=== PATIENT | male | born 1955 | race Caucasian/White ===

== ENCOUNTER 2020-05-12 09:52 | Emergency (ER) | payer OTHER ==
[2020-05-12] MEDS ORDERED: Sodium Chloride 0.9% 10 ML Syringe FLUSH PRN ×2 (10:02→10:25)
[2020-05-12] MEDS ORDERED: Sodium Chloride 0.9% 1,000 ML IV STA (10:02)
[2020-05-12] MEDS ORDERED: Ondansetron 4 MG/2 ML SDV IVPUSH ONE (10:02)
[2020-05-12] MEDS ORDERED: HYDROmorphone 1 MG/ML Syringe IVPUSH ONE (10:04)
--- NOTE | 2020-05-12 10:23 | EDM.PDOC ---
ED HPI GENERAL MEDICAL PROBLEM - General Chief Complaint: Abdominal Pain Stated Complaint: [facility] Time Seen by Provider: 05/12/20 09:57 Source of Information: Reports: Patient, EMS History Limitations: Reports: No Limitations - History of Present Illness INITIAL COMMENTS - FREE TEXT/NARRATIVE: The patient presents by [facility] for abdominal pain. He says this has been going on for about 3 days. The pain is in the right mid abdomen. He has some nausea with it at times. He also has some upper back pain. He has no fever, chills, cough, congestion, runny nose, chest pain or shortness of breath. He has a history of hypercholesterolemia. He is not on medications. He does smoke. He still has his appendix and gallbladder. He has no dysuria or di arrhea. Onset: Gradual Duration: Day(s): (3) Location: Reports: Abdomen, Back Quality: Reports: Sharp Severity: Severe Improves with: Reports: None Worsens with: Reports: None Associated Symptoms: Reports: Nausea/Vomiting. Denies: Chest Pain, Cough, Fever/Chills, Headaches, Shortness of Breath Upper Abdomen Pain Score (Numeric/FACES): 8 - Related Data Allergies Allergy/AdvReac Type Severity Reaction Status Date / Time No Known Allergies Allergy Verified 05/12/20 10:02 Home Meds: Home Meds Docusate Sodium [Colace] 100 mg PO BID 05/12/20 [History] Past Medical History HEENT History: Reports: None Cardiovascular History: Reports: High Cholesterol Respiratory History: Reports: None Gastrointestinal History: Reports: Chronic Constipation Genitourinary History: Reports: None Musculoskeletal History: Reports: None Neurological History: Reports: None Psychiatric History: Reports: None Endocrine/Metabolic History: Reports: None Hematologic History: Reports: None Immunologic History: Reports: None Oncologic (Cancer) History: Reports: None Dermatologic History: Reports: None - Infectious Disease History Infectious Disease History: Reports: None Social & Family History - Tobacco Use Smoking Status *Q: Current Every Day Smoker Years of Tobacco use: 40 Packs/Tins Daily: 0.5 - Caffeine Use Caffeine Use: Reports: Coffee, Soda - Recreational Drug Use Recreational Drug Use: No ED ROS GENERAL - Review of Systems Review Of Systems: See Below Constitutional: Reports: No Symptoms HEENT: Reports: No Symptoms Respiratory: Reports: No Symptoms Cardiovascular: Reports: No Symptoms Endocrine: Reports: No Symptoms GI/Abdominal: Reports: Abdominal Pain, Nausea : Reports: No Symptoms Musculoskeletal: Reports: Back Pain Skin: Reports: No Symptoms Neurological: Reports: No Symptoms ED EXAM, GI/ABD - Physical Exam Exam: See Below Exam Limited By: No Limitations General Appearance: Alert, No Apparent Distress Ears: Normal External Exam Nose: Normal Inspection Head: Atraumatic, Normocephalic Neck: Normal Inspection Respiratory/Chest: No Respiratory Distress, Lungs Clear, Normal Breath Sounds Cardiovascular: Regular Rate, Rhythm, No Edema, No Murmur GI/Abdominal Exam: Soft, No Organomegaly, No Mass, Tender (Moderate tenderness to the mid right abdomen) EKG INTERPRETATION EKG Date: 05/12/20 Time: 10:12 Rhythm: NSR Rate (Beats/Min): 71 [place]: Normal P-Wave: Present QRS: Normal ST-T: Other (Slight ST elevation in the inferior leads with ST depression in the anterior lateral leads) QT: Normal OR/PQ Interval: 2nd degree type II Course - Vital Signs Last Recorded V/S: Last Vital Signs Temp 96.6 F L 05/12/20 09:58 Pulse 70 05/12/20 09:58 Resp 16 05/12/20 09:58 BP 170/81 H 05/12/20 09:58 Pulse Ox 95 05/12/20 09:58 - Orders/Labs/Meds Orders: Active Orders 24 hr Category Date Time Status EKG Documentation Completion [RC] STAT Care 05/12/20 10:02 Active Peripheral IV Care [RC] . DIRECTED Care 05/12/20 10:03 Active CORONAVIRUS COVID-19 RAPID [MOLEC] Stat Lab 05/12/20 10:24 Ordered PTT,PARTIAL THROMBOPLSTIN TIME [COAG] Stat Lab 05/12/20 10:13 Received UA W/MICROSCOPIC [URIN] Stat Lab 05/12/20 10:02 Ordered Heparin Sodium/D5W [Heparin 25,000 Units in D5W 500 ML] Med 05/12/20 11:15 Active 25,000 units in 500 ml IV TITRATE Sodium Chloride 0.9% [Normal Saline] 100 ml Med 05/12/20 10:30 Active IV ASDIRECTED Sodium Chloride 0.9% [Saline Flush] Med 05/12/20 10:02 Active 10 ml FLUSH ASDIRECTED PRN Sodium Chloride 0.9% [Saline Flush] Med 05/12/20 10:25 Active 10 ml FLUSH ONETIME PRN ED Antiemetic Medication Reflex [OM.PC] Stat Oth 05/12/20 10:03 Ordered Peripheral IV Insertion Adult [OM.PC] Stat Ot 05/12/20 10:02 Ordered Medication Orders Sodium Chloride (Normal Saline) 100 mls @ 60 mls/hr IV ASDIRECTED GAYLE Last Admin: 05/12/20 10:30 Dose: 60 mls/hr Documented by: GENESIS Heparin Sodium/Dextrose (Heparin 25,000 Units In D5w 500 Ml) 25,000 units in 500 mls @ 18.751 mls/hr IV TITRATE GAYLE; Protocol Sodium Chloride (Saline Flush) 10 ml FLUSH ASDIRECTED PRN PRN Reason: Keep Vein Open Last Admin: 05/12/20 10:17 Dose: 10 ml Documented by: TYRONE Sodium Chloride (Saline Flush) 10 ml FLUSH ONETIME PRN PRN Reason: Keep Vein Open Last Admin: 05/12/20 10:30 Dose: 10 ml Documented by: GENESIS Labs: Laboratory Tests 05/12/20 05/12/20 Range/Units 10:13 10:13 WBC 14.08 H (4.23-9.07) K/mm3 RBC 5.20 (4.63-6.08) M/mm3 Hgb 15.6 (13.7-17.5) gm/dl Hct 45.6 (40.1-51.0) % MCV 87.7 (79.0-92.2) fl MCH 30.0 (25.7-32.2) pg MCHC 34.2 (32.2-35.5) g/dl RDW Std Deviation 42.8 (35.1-43.9) fL Plt Count 178 (163-337) K/mm3 MPV 11.4 (9.4-12.3) fl Neut % (Auto) 74.7 H (34.0-67.9) % Lymph % (Auto) 20.2 L (21.8-53.1) % Morris % (Auto) 4.6 L (5.3-12.2) % Eos % (Auto) 0.1 L (0.8-7.0) Baso % (Auto) 0.1 (0.1-1.2) % Neut # (Auto) 10.51 H (1.78-5.38) K/mm3 Lymph # (Auto) 2.85 (1.32-3.57) K/mm3 Morris # (Auto) 0.65 (0.30-0.82) K/mm3 Eos # (Auto) 0.01 L (0.04-0.54) K/mm3 Baso # (Auto) 0.02 (0.01-0.08) K/mm3 Manual Slide Review Normal smear Sodium 143 (136-145) mEq/L Potassium 4.3 (3.5-5.1) mEq/L Chloride 105 (98-107) mEq/L Carbon Dioxide 28 (21-32) mEq/L Anion Gap 14.3 (5-15) BUN 13 (7-18) mg/dL Creatinine 1.2 (0.7-1.3) mg/dL Est Cr Clr Drug Dosing 60.55 mL/min Estimated GFR (MDRD) > 60 (>60) mL/min BUN/Creatinine Ratio 10.8 L (14-18) Glucose 148 H (80-115) mg/dL Calcium 9.3 (8.5-10.1) mg/dL Total Bilirubin 1.5 H (0.2-1.0) mg/dL AST 154 H (15-37) U/L ALT 75 H (16-63) U/L Alkaline Phosphatase 84 (46-116) U/L Troponin I 9.372 H* (0.00-0.056) ng/mL Total Protein 7.4 (6.4-8.2) g/dl Albumin 4.0 (3.4-5.0) g/dl Globulin 3.4 gm/dL Albumin/Globulin Ratio 1.2 (1-2) Lipase 71 L (73-393) U/L Meds: Medications Generic Name Dose Route Start Last Admin Trade Name Freq PRN Reason Stop Dose Admin Sodium Chloride 100 mls @ 60 mls/hr 05/12/20 10:30 05/12/20 10:30 Normal Saline IV 60 mls/hr ASDIRECTED GAYLE Administration Heparin Sodium/Dextrose 25,000 units in 500 mls @ 18.751 mls/hr 05/12/20 11:15 Heparin 25,000 Units In D5w 500 Ml IV TITRATE GAYLE Protocol 13 UNITS/KG/HR Sodium Chloride 10 ml 05/12/20 10:02 05/12/20 10:17 Saline Flush FLUSH 10 ml ASDIRECTED PRN Administration Keep Vein Open Sodium Chloride 10 ml 05/12/20 10:25 05/12/20 10:30 Saline Flush FLUSH 10 ml ONETIME PRN Administration Keep Vein Open Discontinued Medications Generic Name Dose Route Start Last Admin Trade Name Freq PRN Reason Stop Dose Admin Aspirin 324 mg 05/12/20 11:04 Aspirin PO 05/12/20 11:05 ONETIME ONE Heparin Sodium (Porcine) 4,000 units 05/12/20 11:04 Heparin Sodium IVPUSH 05/12/20 11:05 .BOLUS ONE Hydromorphone HCl 1 mg 05/12/20 10:04 05/12/20 10:14 Dilaudid IVPUSH 05/12/20 10:05 1 mg ONETIME ONE Administration Sodium Chloride 1,000 mls @ 1,000 mls/hr 05/12/20 10:02 05/12/20 10:14 Normal Saline IV 05/12/20 11:01 1,000 mls/hr .BOLUS STA Administration Iopamidol 125 ml 05/12/20 10:25 05/12/20 10:29 Isovue-370 (76%) IVPUSH 05/12/20 10:26 125 ml ONETIME ONE Administration Ondansetron HCl 4 mg 05/12/20 10:02 05/12/20 10:14 Zofran IVPUSH 05/12/20 10:03 4 mg ONETIME ONE Administration - Re-Assessments/Exams Free Text/Narrative Re-Assessment/Exam: 05/12/20 11:09 I ordered an IV NS 1L bolus, zofran 4mg IV, dilaudid 1mg IV, EKG, labs and a CT of his chest, abdomen and pelvis with contrast to look at his aorta. His EKG did show some slight ST elevation in the inferior leads and ST depression in V1 to V6. His WBC was 14.08. His glucose was elevated at 148. His total bili is elevated at 1.5. His AST is elevated at 154. His ALT is elevated at 75. His t roponin is very elevated at 9.372. His CT of his chest, abdomen and pelvis shows no aneurysm and nothing acute and nothing to explain the pain. It does appear he is having a nonSTEMI. I did an EKG and that slight elevation in the ST segments in the inferior leads is gone but he still has ST depression in V1 through V6. I asked the patient again if he had any chest pain with this and he denied it. I ordered aspirin and a heparin bolus of 4,000 units and a drip of a 1,000 units. I called [facility] in [place] and talked with Dr Cowart the music cataloguer recreation coordinator and he accepted the patient. He did want a atorvastatin give. We do not have that so I ordered simvastatin. He will be going by ground ambulance. Departure - Departure Time of Disposition: 11:25 Disposition: DC/Tfer to Acute Hospital 02 Condition: Serious Clinical Impression: Non-STEMI (non-ST elevated myocardial infarction) - Discharge Information Forms: ED Department Discharge Sepsis Event Note (ED) - Evaluation Sepsis Screening Result: No Definite Risk - Focused Exam Vital Signs: Vital Signs Temp Pulse Resp BP Pulse Ox 05/12/20 09:58 96.6 F L 70 16 170/81 H 95 - My Orders Last 24 Hours: My Active Orders 05/12/20 10:02 EKG Documentation Completion [RC] STAT UA W/MICROSCOPIC [URIN] Stat Sodium Chloride 0.9% [Saline Flush] 10 ml FLUSH ASDIRECTED PRN Peripheral IV Insertion Adult [OM.PC] Stat 05/12/20 10:03 Peripheral IV Care [RC] . DIRECTED ED Antiemetic Medication Reflex [OM.PC] Stat 05/12/20 10:13 PTT,PARTIAL THROMBOPLSTIN TIME [COAG] Stat 05/12/20 10:24 CORONAVIRUS COVID-19 RAPID [MOLEC] Stat 05/12/20 10:25 Sodium Chloride 0.9% [Saline Flush] 10 ml FLUSH ONETIME PRN 05/12/20 10:30 Sodium Chloride 0.9% [Normal Saline] 100 ml IV ASDIRECTED 05/12/20 11:15 Heparin Sodium/D5W [Heparin 25,000 Units in D5W 500 ML] 25,000 units in 500 ml IV TITRATE - Assessment/Plan Last 24 Hours: My Active Orders 05/12/20 10:02 EKG Documentation Completion [RC] STAT UA W/MICROSCOPIC [URIN] Stat Sodium Chloride 0.9% [Saline Flush] 10 ml FLUSH ASDIRECTED PRN Peripheral IV Insertion Adult [OM.PC] Stat 05/12/20 10:03 Peripheral IV Care [RC] . DIRECTED ED Antiemetic Medication Reflex [OM.PC] Stat 05/12/20 10:13 PTT,PARTIAL THROMBOPLSTIN TIME [COAG] Stat 05/12/20 10:24 CORONAVIRUS COVID-19 RAPID [MOLEC] Stat 05/12/20 10:25 Sodium Chloride 0.9% [Saline Flush] 10 ml FLUSH ONETIME PRN 05/12/20 10:30 Sodium Chloride 0.9% [Normal Saline] 100 ml IV ASDIRECTED 05/12/20 11:15 Heparin Sodium/D5W [Heparin 25,000 Units in D5W 500 ML] 25,000 units in 500 ml IV TITRATE
[2020-05-12] MEDS ORDERED: Iopamidol 755 Mg/ML 100 ML Bottle IVPUSH ONE (10:25)
[2020-05-12] MEDS ORDERED: Sodium Chloride 0.9% 100 ML IV SCH (10:30)
[2020-05-12] MEDS ORDERED: Heparin Sodium 5,000 Units/ML Vial IVPUSH ONE (11:04)
[2020-05-12] MEDS ORDERED: Aspirin 81 MG Tab.Chew PO ONE (11:04)
--- NOTE | 2020-05-12 11:06 | CT ---
CT chest Technique: Multiple axial sections through the chest were obtained. Intravenous contrast was utilized. Reconstructed coronal and sagittal images were obtained. Comparison: Prior chest CT study performed as a high resolution study dated 01/12/16. Findings: Aorta shows no aneurysm. Mild atherosclerotic plaque is seen within the aorta. No aneurysm or dissection is seen. Mediastinum and hilar regions show no adenopathy. No axillary adenopathy is seen. Visualized pulmonary arteries show no filling defects of pulmonary embolism. No pericardial thickening is seen. Small hiatal hernia is noted. Lung window settings were reviewed. No acute parenchymal change is seen. Subpleural blebs are noted within the right lung apex. No pleural effusions are seen. Bone window settings were reviewed. No acute osseous finding is appreciated. Impression: 1. Atherosclerotic change within the aorta. No dissection or aneurysm is seen. 2. Other findings which are nonacute as noted above. Diagnostic code #2 This report was dictated in MDT CT abdomen and pelvis Technique: Multiple axial sections were obtained from above the dome of the diaphragm inferiorly through the pubic symphysis. Intravenous contrast was utilized. No oral contrast was given. Delayed images were obtained during the nephrogram stage of the kidneys through the abdomen and pelvis. Reconstructed coronal and sagittal images were obtained. Comparison: Prior CT abdomen and pelvis exam of 04/18/09. Findings: Liver contains no focal parenchymal abnormality. Spleen appears within normal limits. Small hiatal hernia is noted. Adrenal glands show no nodule. Pancreas shows no discrete abnormality. Gallbladder contains no calcified gallstones. Kidneys show symmetric contrast enhancement without hydronephrosis or mass. Small scattered retroperitoneal lymph nodes are seen believed to be normal. Appendix is seen which is normal. No pelvic mass or adenopathy is seen. Aorta shows no aneurysm. No dissection is seen. Single renal arteries are noted which are without stenosis. Superior mesenteric artery and celiac axis shows no stenosis. Inferior mesenteric artery is also patent. Common iliac arteries as well as external and internal iliac arteries are patent. No free fluid or inflammatory change is seen. Bone window settings were reviewed. No acute osseous finding is appreciated. Impression: 1. Abdominal aorta shows no aneurysm or dissection. No focal stenosis is seen within the branch vessels of the abdominal aorta. 2. Nothing acute is seen on other portions of the CT exam of the abdomen and pelvis. Diagnostic code #1 This report was dictated in
[2020-05-12] MEDS ORDERED: Heparin Sodium/D5W 25,000 UNITS/500 ML BAG IV SCH (11:15)
[2020-05-12] MEDS ORDERED: Simvastatin 40 MG Tab PO ONE (11:47)
[2020-05-12] MEDS ORDERED: Simvastatin 40 MG Tab PO SCH (21:00)
== END 2020-05-12 11:45 ==
LOC: JD.ED 09:52
DX: I21.4 Non-ST elevation (NSTEMI) myocardial infarction (principal); F17.210 Nicotine dependence, cigarettes, uncomplicated; Z20.828 Contact with and (suspected) exposure to other viral communicable diseases
CPT/HCPCS: 36415; 71260; 74177; 80053; 83690; 84484; 85025; 85730; 87635; 93005; 96361; 96365; 96375; 99285; A9270; J1170; J1644; J2405; J7030; J7050; Q9967; 93010; U0002

== ENCOUNTER 2021-09-10 14:17 | Emergency (ER) | payer OTHER, MEDICARE ==
[2021-09-10] MEDS ORDERED: Sodium Chloride 0.9% 10 ML Syringe FLUSH PRN (14:30)
--- NOTE | 2021-09-10 15:27 | EDM.PDOC ---
<Sukhjinder Vasques - Last Filed: 09/11/21 04:22> ED HPI GENERAL MEDICAL PROBLEM - General Chief Complaint: Cardiovascular Problem Stated Complaint: [facility] Time Seen by Provider: 09/10/21 15:00 - Related Data Allergies Allergy/AdvReac Type Severity Reaction Status Date / Time No Known Allergies Allergy Verified 09/10/21 14:27 Home Meds: Home Meds Docusate Sodium [Colace] 100 mg PO BID 05/12/20 [History] Course - Re-Assessments/Exams Free Text/Narrative Re-Assessment/Exam: 09/10/21 23:[address] Ruffin. His 6 hour repeat troponin is totally normal. I was going to discharge him home but he has no ride until morning. I will discharge him in the morning then. 09/11/21 04:22 His ride is on his way. He is still doing good. I will discharge him home. Departure - Departure Time of Disposition: 04:25 Disposition: Home, Self-Care 01 Condition: Good Clinical Impression: Chest pain Qualifiers: Chest pain type: unspecified Qualified Code(s): R07.9 - Chest pain, unspecified Instructions: Nonspecific Chest Pain, Adult, [id number], Angina, [id number] Referrals: PCP,None [Primary Care Provider] - Forms: ED Department Discharge Additional Instructions: Go home and rest. Take your medication as prescribed. Follow up with your provider within a week. Please return if you are worse. <Dustin Ruffin - Last Filed: 09/11/21 13:58> ED HPI GENERAL MEDICAL PROBLEM - General Source of Information: Reports: Patient History Limitations: Reports: No Limitations - History of Present Illness INITIAL COMMENTS - FREE TEXT/NARRATIVE: Patient is a 66-year-old male with a past medical history of cardiovascular disease presenting with a complaint of chest discomfort. Patient reports left- sided chest tightness which started after shoveling snow earlier this afternoon. Patient reports no associated shortness of breath, palpitations, dizziness. Chest discomfort did resolve with rest. He describes the chest discomfort as a tightness and pressure in his left side of his chest. No radiation of symptoms patient denies any jaw pain, neck pain, shoulder pain. Patient has no recent hospitalizations or recent surgeries. Denies any lower extremity swelling or calf pain. No prior history of DVT or PE. Past Medical History HEENT History: Reports: None Cardiovascular History: Reports: High Cholesterol Respiratory History: Reports: None Gastrointestinal History: Reports: Chronic Constipation Genitourinary History: Reports: None Musculoskeletal History: Reports: None Neurological History: Reports: None Psychiatric History: Reports: None Endocrine/Metabolic History: Reports: None Hematologic History: Reports: None Immunologic History: Reports: None Oncologic (Cancer) History: Reports: None Dermatologic History: Reports: None - Infectious Disease History Infectious Disease History: Reports: None Social & Family History - Tobacco Use Tobacco Use Status *Q: Never Tobacco User - Caffeine Use Caffeine Use: Reports: Coffee, Soda ED ROS GENERAL - Review of Systems Review Of Systems: See Below Free Text/Narrative/Comment: In addition to that documented in the HPI above, the additional ROS was obtained: Constitutional: Denies fevers or chills Eyes: Denies vision changes ENMT: Denies sore throat CV: Per HPI Resp: Per HPI GI: Denies vomiting or diarrhea : Denies painful urination MSK: Denies recent trauma Skin: Denies new rashes Neuro: Denies new numbness or tingling or weakness Endocrine: Denies unexpected weight loss Heme: Denies bleeding disorders ED EXAM, GENERAL - Physical Exam Exam: See Below Free Text/Narrative:: I have reviewed the triage vital signs Const: Well nourished, well developed, appears stated age Eyes: Pupils Equal and reactive to light bilaterally, no conjunctival injection HENT: No signs of trauma or swelling, Neck supple without meningismus CV: Regular Rate Rhythm, Warm, well-perfused extremities RESP: Unlabored respiratory effort GI: soft, non-tender, non-distended, no masses MSK: No gross deformities appreciated Skin: Warm, dry. No rashes Neuro: Alert, motorsports technician II-XII grossly intact. Sensation and motor function of extremities grossly intact. Psych: Appropriate mood and affect. #1 Interpretation EKG Date: 09/10/21 Time: 14:20 Rhythm: NSR Rate (Beats/Min): 80 [place]: Normal P-Wave: Enlarged QRS: RBBB Comparison: Change From Previous EKG EKG Interpretation Comments: Normal EKG. No STEMI. Course - Vital Signs Last Recorded V/S: Last Vital Signs Temp 36.7 C 09/10/21 14:24 Pulse 81 09/11/21 03:00 Resp 18 09/11/21 03:00 BP 117/76 09/11/21 03:00 Pulse Ox 92 L 09/11/21 03:00 - Orders/Labs/Meds Orders: Active Orders 24 hr Category Date Time Status Peripheral IV Insertion Adult [OM.PC] Stat Oth 09/10/21 14:30 Ordered Labs: Laboratory Tests 09/10/21 09/10/21 09/10/21 Range/Units 15:22 15:22 15:22 WBC 9.24 H (4.23-9.07) K/mm3 RBC 4.94 (4.63-6.08) M/mm3 Hgb 14.8 (13.7-17.5) gm/dl Hct 43.8 (40.1-51.0) % MCV 88.7 (79.0-92.2) fl MCH 30.0 (25.7-32.2) pg MCHC 33.8 (32.2-35.5) g/dl RDW Std Deviation 43.2 (35.1-43.9) fL Plt Count 134 L (163-337) K/mm3 MPV 11.4 (9.4-12.3) fl Neut % (Auto) 50.9 (34.0-67.9) % Lymph % (Auto) 39.3 (21.8-53.1) % [place] % (Auto) 6.6 (5.3-12.2) % Eos % (Auto) 2.8 (0.8-7.0) Baso % (Auto) 0.3 (0.1-1.2) % Neut # (Auto) 4.70 (1.78-5.38) K/mm3 Lymph # (Auto) 3.63 H (1.32-3.57) K/mm3 [place] # (Auto) 0.61 (0.30-0.82) K/mm3 Eos # (Auto) 0.26 (0.04-0.54) K/mm3 Baso # (Auto) 0.03 (0.01-0.08) K/mm3 PT 10.3 (9.7-12.0) SECONDS INR 0.93 D-Dimer, Quantitative < 0.19 L (0.19-0.50) mg/L Sodium 145 (136-145) mEq/L Potassium 4.1 (3.5-5.1) mEq/L Chloride 106 (98-107) mEq/L Carbon Dioxide 28 (21-32) mEq/L Anion Gap 15.1 H (5-15) BUN 17 (7-18) mg/dL Creatinine 1.1 (0.7-1.3) mg/dL Est Cr Clr Drug Dosing TNP Estimated GFR (MDRD) > 60 (>60) mL/min BUN/Creatinine Ratio 15.5 (14-18) Glucose 106 H (70-99) mg/dL Calcium 9.0 (8.5-10.1) mg/dL Magnesium 2.0 (1.8-2.4) mg/dL Total Bilirubin 1.2 H (0.2-1.0) mg/dL AST 17 (15-37) U/L ALT 40 (16-63) U/L Alkaline Phosphatase 86 (46-116) U/L Troponin I < 0.017 (0.00-0.056) ng/mL NT-Pro-B Natriuret Pep (0-125) pg/mL Total Protein 6.7 (6.4-8.2) g/dl Albumin 4.0 (3.4-5.0) g/dl Globulin 2.7 gm/dL Albumin/Globulin Ratio 1.5 (1-2) 09/10/21 09/10/21 09/10/21 Range/Units 15:22 17:35 22:55 WBC (4.23-9.07) K/mm3 RBC (4.63-6.08) M/mm3 Hgb (13.7-17.5) gm/dl Hct (40.1-51.0) % MCV (79.0-92.2) fl MCH (25.7-32.2) pg MCHC (32.2-35.5) g/dl RDW Std Deviation (35.1-43.9) fL Plt Count (163-337) K/mm3 MPV (9.4-12.3) fl Neut % (Auto) (34.0-67.9) % Lymph % (Auto) (21.8-53.1) % [place] % (Auto) (5.3-12.2) % Eos % (Auto) (0.8-7.0) Baso % (Auto) (0.1-1.2) % Neut # (Auto) (1.78-5.38) K/mm3 Lymph # (Auto) (1.32-3.57) K/mm3 [place] # (Auto) (0.30-0.82) K/mm3 Eos # (Auto) (0.04-0.54) K/mm3 Baso # (Auto) (0.01-0.08) K/mm3 PT (9.7-12.0) SECONDS INR D-Dimer, Quantitative (0.19-0.50) mg/L Sodium (136-145) mEq/L Potassium (3.5-5.1) mEq/L Chloride (98-107) mEq/L Carbon Dioxide (21-32) mEq/L Anion Gap (5-15) BUN (7-18) mg/dL Creatinine (0.7-1.3) mg/dL Est Cr Clr Drug Dosing Estimated GFR (MDRD) (>60) mL/min BUN/Creatinine Ratio (14-18) Glucose (70-99) mg/dL Calcium (8.5-10.1) mg/dL Magnesium (1.8-2.4) mg/dL Total Bilirubin (0.2-1.0) mg/dL AST (15-37) U/L ALT (16-63) U/L Alkaline Phosphatase (46-116) U/L Troponin I 0.044 < 0.017 (0.00-0.056) ng/mL NT-Pro-B Natriuret Pep 921 H (0-125) pg/mL Total Protein (6.4-8.2) g/dl Albumin (3.4-5.0) g/dl Globulin gm/dL Albumin/Globulin Ratio (1-2) Meds: Medications Discontinued Medications Generic Name Dose Route Start Last Admin Trade Name Freq PRN Reason Stop Dose Admin Nitroglycerin 0.3 mg 09/10/21 15:28 Nitroglycerin 0.3 Mg Tab.Sl SL Q5M PRN Chest Pain Nitroglycerin Confirm 09/10/21 16:08 09/10/21 19:11 Nitroglycerin 0.4 Mg Tab.Sl Administered 09/10/21 16:09 Not Given Dose 0.4 mg .ROUTE .STK-MED ONE Sodium Chloride 10 ml 09/10/21 14:30 09/10/21 14:32 Sodium Chloride 0.9% 10 Ml Syringe FLUSH 10 ml ASDIRECTED PRN Administration Keep Vein Open - Re-Assessments/Exams Free Text/Narrative Re-Assessment/Exam: 09/10/21 18:49 Repeat troponin testing demonstrates slight increase in troponin to 0.044, which is still beneath our cutoff. However, with this change, I did recommend a third troponin testing to be completed. Patient was informed of this plan. At current time, patient is pain-free. Sepsis Event Note (ED) - Evaluation Sepsis Screening Result: No Definite Risk - Focused Exam Vital Signs: Vital Signs Pulse Resp BP Pulse Ox 09/11/21 03:00 81 18 117/76 92 L 09/11/21 02:00 95 18 139/81 94 L - My Orders Last 24 Hours: My Active Orders 09/10/21 14:30 Peripheral IV Insertion Adult [OM.PC] Stat - Assessment/Plan Last 24 Hours: My Active Orders 09/10/21 14:30 Peripheral IV Insertion Adult [OM.PC] Stat
[2021-09-10] MEDS ORDERED: Nitroglycerin 0.3 MG Tab.SL SL PRN (15:28)
[2021-09-10] MEDS ORDERED: Nitroglycerin 0.4 MG Tab.SL ONE (16:08)
--- NOTE | 2021-09-10 16:14 | CR ---
EXAM: XR CHEST 1 VIEW LOCATION: [facility] DATE/TIME: 09/10/2021 2:37 PM INDICATION: Chest pain COMPARISON: None. IMPRESSION: Negative chest. SIGNED BY: Elmer Morrow MD 09/10/2021 4:29 PM [facility]
== END 2021-09-11 04:31 | disposition home or self-care (01) ==
LOC: JD.ED 14:17
DX: R07.89 Other chest pain (principal)
CPT/HCPCS: 36415; 71045; 71045-26; 80053; 83735; 83880; 84484; 85025; 85379; 85610; 93005; 99285-25